=== PATIENT | female | born 1960 | race Caucasian/White ===

== ENCOUNTER 2016-07-28 18:29 | Emergency (ER) | payer BC ==
[~2016-07-28] VITALS: Ht 149.9 cm; Wt 63.5 kg
[2016-07-28 18:30] VITALS: BP 146/73; PULSE 96; RESP 16; TEMP 98.3; O2SAT 93
--- NOTE | 2016-07-28 19:27 | PD ---
HPI Chief Complaint: Fall Time Seen by Provider: 19:27 Travel History International Travel<30 days: No Contact w/Intl Traveler<30days: No Traveled to known affect area: No History of Present Illness HPI 56-year-old female with history of ALS presents to department for evaluation of left ankle and left knee pain. Patient states that she is weaker on her left side and depends a lot on her right. She was transferring when she misstepped and rolled over her left ankle and struck her left knee. She did not hit her head or lose consciousness. Reports significant pain in the left ankle. This concerned about a swollen area on the anterior left knee. Denies any other symptoms at this time. PFSH Past Medical History Autoimmune Disease: Yes Social History Alcohol Use: No Tobacco Use: No Substance Use: No Allergies-Medications (Allergen,Severity, Reaction): Coded Allergies: Tetracycline (Verified Allergy, Severe, 07/28/16) "TRIPLE YEAST INFECTION" Reported Meds & Prescriptions Reported Meds & Active Scripts Active Lortab (Hydrocodone-Acetaminophen) 5-325 Mg Tab 1 Tab PO Q6H PRN Review of Systems Except as stated in HPI: all other systems reviewed are Neg Physical Exam Narrative GENERAL: Well-nourished female patient, lying in bed in no acute distress SKIN: Warm and dry. HEAD: Atraumatic. Normocephalic. EYES: Pupils equal and round. No scleral icterus. No injection or drainage. ENT: No nasal bleeding or discharge. Mucous membranes pink and moist. NECK: Trachea midline. No JVD. CARDIOVASCULAR: Regular rate and rhythm. No murmur appreciated. RESPIRATORY: No accessory muscle use. Diminished to auscultation. Breath sounds equal bilaterally. GASTROINTESTINAL: Abdomen soft, non-tender, nondistended. Hepatic and splenic margins not palpable. MUSCULOSKELETAL: No obvious deformities. No clubbing. No cyanosis. No edema. NEUROLOGICAL: Awake and alert. No obvious cranial nerve deficits. Generalized weakness with the left upper and lower extremity. Patient is unable to flex and extend the left foot and toes this is chronic for her. The left ankle is swollen and tender over the lateral aspect but the skin is intact and there is no ligamentous instability. There is no deformity. The foot and toes are warm and well-perfused. Sensation to pain and light touch is intact. There is also a palpable effusion on the anterior left knee inferior to the patella. This area is tender to palpate. PSYCHIATRIC: Appropriate mood and affect; insight and judgment normal. Data Data Last Documented VS Vital Signs Date Time Temp Pulse Resp B/P Pulse Ox O2 Delivery O2 Flow Rate FiO2 07/28/16 18:30 98.3 96 16 146/73 93 Room Air Orders Ankle, Complete ([id number]) (07/28/16 ) Knee, Complete (4vws) (07/28/16 ) Ice/Cold Pack (07/28/16 21:41) Splint Or Brace Apply/Monitor (07/28/16 21:41) Hip, Uni(Ap&Lat) W Ap Pelvis (07/28/16 22:35) Ibuprofen (Motrin) (07/28/16 22:45) Fiberglass Short Leg Splint Ad (07/28/16 ) MDM Medical Decision Making Medical Screen Exam Complete: Yes Emergency Medical Condition: Yes Medical Record Reviewed: Yes Differential Diagnosis Fracture versus sprain versus contusion versus dislocation Narrative Course 56-year-old female presents to the emergency department for evaluation of left ankle and left knee pain following a transfer fall. X-ray imaging is ordered in triage. Patient appears without distress. She does have tenderness elicited palpation of the anterior and lateral aspect of the left ankle. No obvious deformity. Distal pulses are palpable. The affected extremity remains neurovascularly intact. IMAGING ORDERED IN TRIAGE. ONCE A BED BECOMES AVAILABLE PT WILL BE TRANSFERRED Scripts Hydrocodone-Acetaminophen (Lortab)5-325 Mg Tab1 Tab PO Q6H PRN (PAIN) #20 TAB Prov:Mary Mccoy MD 07/28/16 Condition: Stable Wanda Albert Jul 28, 2016 19:27
--- NOTE | 2016-07-28 21:12 | RADRPT ---
EXAM DATE/TIME: 07/28/2016 19:54 [facility] COMPARISON: No previous studies available for comparison. INDICATIONS : Left knee pain after fall. MEDICAL HISTORY : ALS. SURGICAL HISTORY : None. ENCOUNTER: Initial ACUITY: 1 day PAIN SCORE: 10/10 LOCATION: Left knee FINDINGS: No definite fractures, or dislocations are identified. No definite lytic or sclerotic lesion is seen . Slight osteopenia is seen. The joint spaces are well maintained. CONCLUSION: Slight osteopenia. KGalileo Stacy MD on July 28, 2016 at 21:10 Board Certified Radiologist. This report was verified electronically.
--- NOTE | 2016-07-28 21:13 | RADRPT ---
EXAM DATE/TIME: 07/28/2016 19:57 [place] Corrected on: July 28, 2016; [facility] COMPARISON: No previous studies available for comparison. INDICATIONS : Left ankle pain after fall. MEDICAL HISTORY : ALS. SURGICAL HISTORY : None. ENCOUNTER: Initial ACUITY: 1 day PAIN SCORE: 10/10 LOCATION: Left ankle. FINDINGS: There is significant osteopenia and there is a subtle hairline fracture involving the lateral portion of the distal tibia which extends intra-articularly into the tibiotalar joint. CONCLUSION: Subtle intra-articular distal tibial fracture. Lauri Stacy MD on July 28, 2016 at 21:48 Board Certified Radiologist. This report was verified electronically.
[2016-07-28] MEDS ORDERED: HYDR-3533 PO (21:42)
--- NOTE | 2016-07-28 21:48 | PD ---
Physical Exam Date Seen by Provider: Jul 28, 2016 Time Seen by Provider: 21:46 Data Data Last Documented VS Vital Signs Date Time Temp Pulse Resp B/P Pulse Ox O2 Delivery O2 Flow Rate FiO2 07/28/16 18:30 98.3 96 16 146/73 93 Room Air Orders Ankle, Complete ([id number]) (07/28/16 ) Knee, Complete (4vws) (07/28/16 ) Ice/Cold Pack (07/28/16 21:41) Splint Or Brace Apply/Monitor (07/28/16 21:41) Hip, Uni(Ap&Lat) W Ap Pelvis (07/28/16 22:35) Ibuprofen (Motrin) (07/28/16 22:45) Fiberglass Short Leg Splint Ad (07/28/16 ) MDM Medical Record Reviewed: Yes Supervised Visit with QI: No Interpretation(s) Last 24 hours Impressions Knee X-Ray 07/28/16 0000 Signed Impressions: Service Date/Time: July 19:54 - CONCLUSION: Slight osteopenia. Lauri Stacy MD Ankle X-Ray 07/28/16 0000 Signed Impressions: Service Date/Time: July 19:57 - CONCLUSION: Subtle intra-articular distal tibial fracture. Lauri Stacy MD Left ankle: Patient has a nondisplaced fracture of the distal tibia lateral aspect. Nondisplaced. Left knee: Negative for acute fracture Right hip and pelvis: Negative for acute bony injury. Differential Diagnosis MDM: High Differential diagnoses: Fracture, sprain, strain, dislocation, contusion, neurovascular injury Narrative Course X-rays reveal a nondisplaced fracture of the distal tibia. Patient is placed in a posterior splint. She is offered pain medication but she has declined. This is left ankle fracture, left knee sprain Diagnosis Primary Impression: Closed left ankle fracture Qualified Code: S82.892A - Closed left ankle fracture, initial encounter Additional Impression: Left knee sprain Qualified Code: S83.92XA - Sprain of left knee, unspecified ligament, initial encounter Referrals: Abraham Gaxiola MD 1 week Patient Instructions: General Instructions Additional Instruction: Rest. Elevation. Ice packs for the next 3 days. Posterior splint No weight-bearing. Medications as directed Follow-up with an orthopedist in one week. Return to the ER if any problems Med/Other Pt SpecificInfo: Prescription(s) given Scripts Hydrocodone-Acetaminophen (Lortab)5-325 Mg Tab1 Tab PO Q6H PRN (PAIN) #20 TAB Prov:Mary Mccoy MD 07/28/16 Disposition: 01 DISCHARGE HOME Condition: Stable Tim Ngo Jul 28, 2016 21:48
[2016-07-28] MEDS ORDERED: IBUPROFEN 600 MG TAB PO ONE (22:45)
--- NOTE | 2016-07-28 23:13 | RADRPT ---
EXAM DATE/TIME: 07/28/2016 23:04 [facility] COMPARISON: No previous studies available for comparison. INDICATIONS : Patient fell this morning. MEDICAL HISTORY : None. SURGICAL HISTORY : None. ENCOUNTER: Initial ACUITY: 1 day PAIN SCORE: 2/10 LOCATION: Right Hip. FINDINGS: Examination of the right hip was performed with AP Pelvis. The primary and secondary trabecular tali migel of the femoral neck is intact. The hip joint is of normal width without significant sclerosis or bony hypertrophy. The acetabulum is grossly intact. CONCLUSION: Unremarkable examination of the right hip. Aníbal Ivan MD on July 28, 2016 at 23:11 Board Certified Radiologist. This report was verified electronically.
== END 2016-07-28 23:42 | disposition home or self-care (01) ==
LOC: NEPB 18:29
DX: S82.392A Other fracture of lower end of left tibia, initial encounter for closed fracture (principal); S83.92XA Sprain of unspecified site of left knee, initial encounter; S79.911A Unspecified injury of right hip, initial encounter; M85.80 Other specified disorders of bone density and structure, unspecified site; G12.21 Amyotrophic lateral sclerosis; X50.9XXA Other and unspecified overexertion or strenuous movements or postures, initial encounter; W17.89XA Other fall from one level to another, initial encounter; Y93.89 Activity, other specified; Y92.9 Unspecified place or not applicable
CPT/HCPCS: 29515; 73502; 73564; 73610